=== PATIENT | female | born 1950 | race Caucasian/White ===

== ENCOUNTER 2021-02-20 10:36 | Outpatient (CLI) | payer MEDICARE | END 2021-02-20 10:37 | disposition home or self-care (01) | LOC: RT 10:36 | PROVIDERS: ATTEND Internal Medicine Cardiovascular Disease | DX: Z01.810 Encounter for preprocedural cardiovascular examination (principal); I10 Essential (primary) hypertension | CPT/HCPCS: 93005 ==

== ENCOUNTER 2021-03-10 19:02 | Outpatient (CLI) | payer MEDICARE | END 2021-03-10 19:03 | disposition home or self-care (01) | LOC: COV 19:02 | PROVIDERS: ATTEND Internal Medicine Cardiovascular Disease | DX: Z01.812 Encounter for preprocedural laboratory examination (principal); Z20.822 Contact with and (suspected) exposure to COVID-19 ==